=== PATIENT | female | born 1955 | race Caucasian/White ===

== ENCOUNTER 2018-07-06 06:48 | Day surgery (SDC) | payer OTHER ==
[~2018-07-06] VITALS: Ht 154.9 cm; Wt 69.5 kg
[~2018-07-06 06:48] MED LIST: SODIUM CHLORIDE 0.9% 1,000 ML IV ONE
[2018-07-06] MEDS ORDERED: LIDOCAINE 2% 30 ML JELLY TP ONE ×2 (06:49)
[2018-07-06] MEDS ORDERED: ALBUTEROL SULFATE 2.5 MG/0.5 ML NEB SOLUTION NEB ONE ×2 (06:49)
[2018-07-06] MEDS ORDERED: LIDOCAINE 4% 50 ML SOLUTION TP ONE ×2 (06:49)
[2018-07-06] MEDS ORDERED: BENZOCAINE 20% 50 MCG/SPRAY 57 GM TP ONE ×2 (06:49)
[2018-07-06] MEDS ORDERED: SODIUM CHLORIDE 0.9% 1,000 ML IV ONE (07:00)
[2018-07-06] MEDS ORDERED: MIDAZOLAM HCL 2 MG/2 ML VIAL ONE (07:50)
[2018-07-06] MEDS ORDERED: FentaNYL CITRATE-PF 100 MCG/2 ML VIAL ONE (07:50)
[2018-07-06] MEDS ORDERED: MONT10TA21 PO (08:40)
[2018-07-06] MEDS ORDERED: FISH1 PO (08:40)
[2018-07-06] MEDS ORDERED: OMEP20 PO (08:40)
[2018-07-06] MEDS ORDERED: LORA10TA7 PO (08:40)
[2018-07-06] MEDS ORDERED: ALBU8.5H8 IH (08:40)
[2018-07-06] MEDS ORDERED: ATOR40TA28 PO (08:40)
[2018-07-06] MEDS ORDERED: MethylPREDNISolone SOD SUCC 125 MG/2 ML VIAL IVP ONE (09:15)
[2018-07-06] MEDS ORDERED: MethylPREDNISolone SOD SUCC 125 MG/2 ML VIAL ONE (09:28)
[2018-07-06] MEDS ORDERED: OXYGEN THERAPY IH SCH (20:00)
== END 2018-07-06 10:25 | disposition home or self-care (01) ==
LOC: SURGERY 06:48
PROVIDERS: ATTEND Internal Medicine Critical Care Medicine
DX: J38.4 Edema of larynx (principal); B37.0 Candidal stomatitis; J84.89 Other specified interstitial pulmonary diseases; J84.111 Idiopathic interstitial pneumonia, not otherwise specified; I10 Essential (primary) hypertension; J45.998 Other asthma; M19.90 Unspecified osteoarthritis, unspecified site; Z90.49 Acquired absence of other specified parts of digestive tract; Z90.710 Acquired absence of both cervix and uterus; Z87.01 Personal history of pneumonia (recurrent); Z86.11 Personal history of tuberculosis; Z79.51 Long term (current) use of inhaled steroids; Z98.890 Other specified postprocedural states; Z79.899 Other long term (current) drug therapy
CPT/HCPCS: 31623; 31624; 71045; 87015; 87070; 87205; 87206; 87220; 88108; 88305; 88312; J2250; J2930; J3010; J7030

== ENCOUNTER → 2021-05-09 | Day surgery (SDC) | payer OTHER ==
[2021-05-07 11:15] LABS: COVID AG,FIA SOURCE NASOPHARYNGEAL
[~2021-05-09] VITALS: Ht 152.4 cm; Wt 72.3 kg
[~2021-05-09] MED LIST changes: +ALBU8.5H8 IH; +ALBUTEROL SULFATE 2.5 MG/0.5 ML NEB SOLUTION NEB ONE; +ATOR40TA28 PO; +BENZOCAINE 20% 50 MCG/SPRAY 57 GM TP ONE; +FISH1 PO; +FentaNYL CITRATE PF 100 MCG/2 ML VIAL ONE; +LIDOCAINE 2% 30 ML JELLY TP ONE; +LIDOCAINE 4% 50 ML SOLUTION TP ONE; +LORA10TA7 PO; +MIDAZOLAM HCL 2 MG/2 ML VIAL ONE; +MONT-35 PO; +MethylPREDNISolone SOD SUCC 125 MG/2 ML VIAL IVP ONE; +MethylPREDNISolone SOD SUCC 125 MG/2 ML VIAL ONE; +OMEP20 PO; +OXYGEN THERAPY IH SCH; +SODIUM CHLORIDE 0.9% 1,000 ML ONE
== END | disposition home or self-care (01) ==
LOC: SURGERY 06:18
PROVIDERS: ATTEND Internal Medicine Critical Care Medicine
DX: J38.4 Edema of larynx (principal); B37.0 Candidal stomatitis; M19.90 Unspecified osteoarthritis, unspecified site; Z90.710 Acquired absence of both cervix and uterus; Z90.49 Acquired absence of other specified parts of digestive tract
CPT/HCPCS: 31623; 31624; 71045; 87015; 87070; 87077; 87101; 87186; 87206; 87220; 87426; 88108; 88184; 88185; 88312; C9803; J2250; J2930; J3010; J7030; J7613; Z7610

== ENCOUNTER 2022-06-17 06:05 | Day surgery (SDC) | payer OTHER ==
[~2022-06-17] VITALS: Ht 154.9 cm; Wt 69.1 kg
[~2022-06-17 06:05] MED LIST changes: -ALBUTEROL SULFATE 2.5 MG/0.5 ML NEB SOLUTION NEB ONE; -BENZOCAINE 20% 50 MCG/SPRAY 57 GM TP ONE; +CHOL500045 PO; +FAMO40TA7 PO; +FLUT16H NASAL; +FLUT1BLS13 IH; -FentaNYL CITRATE PF 100 MCG/2 ML VIAL ONE; -LIDOCAINE 2% 30 ML JELLY TP ONE; -LIDOCAINE 4% 50 ML SOLUTION TP ONE; -MIDAZOLAM HCL 2 MG/2 ML VIAL ONE; -MethylPREDNISolone SOD SUCC 125 MG/2 ML VIAL IVP ONE; -MethylPREDNISolone SOD SUCC 125 MG/2 ML VIAL ONE; -OMEP20 PO; -OXYGEN THERAPY IH SCH; -SODIUM CHLORIDE 0.9% 1,000 ML ONE
[2022-06-17] MEDS ORDERED: LIDOCAINE 4% 50 ML SOLUTION TP ONE (06:06)
[2022-06-17] MEDS ORDERED: LIDOCAINE 2% 11 ML JELLY TP ONE (06:06)
[2022-06-17] MEDS ORDERED: BENZOCAINE 20% 50 MCG/SPRAY 57 GM TP ONE (06:06)
[2022-06-17 06:39] LABS: COVID AG,FIA SOURCE NASAL SWAB
[2022-06-17] MEDS ORDERED: DICL75TA5 PO (06:59)
[2022-06-17] MEDS ORDERED: DOXY75TA14 PO (06:59)
[2022-06-17] MEDS ORDERED: PRED-729 PO (06:59)
[2022-06-17] MEDS ORDERED: SODIUM CHLORIDE 0.9% 1,000 ML ONE (07:16)
[2022-06-17] MEDS ORDERED: MIDAZOLAM HCL 5 MG/ML VIAL ONE (07:41)
[2022-06-17] MEDS ORDERED: FentaNYL CITRATE PF 100 MCG/2 ML VIAL ONE (07:41)
[2022-06-17] MEDS ORDERED: MethylPREDNISolone SOD SUCC 125 MG/2 ML VIAL ONE (09:23)
[2022-06-17] MEDS ORDERED: MethylPREDNISolone SOD SUCC 125 MG/2 ML VIAL IVP ONE (09:30)
[2022-06-17] MEDS ORDERED: PROMETH/PHENYLEPHRINE/CODEINE 5 ML ORAL.SYG PO ONE (09:30)
[2022-06-17] MEDS ORDERED: ALBUTEROL SULFATE 2.5 MG/0.5 ML NEB SOLUTION NEB ONE ×2 (11:00→11:01)
[2022-06-17] MEDS ORDERED: OXYGEN THERAPY IH SCH (20:00)
== END 2022-06-17 11:30 | disposition home or self-care (01) ==
LOC: SURGERY 06:05
PROVIDERS: ATTEND Internal Medicine Critical Care Medicine
DX: J38.4 Edema of larynx (principal); B37.0 Candidal stomatitis; Z90.710 Acquired absence of both cervix and uterus; Z91.013 Allergy to seafood; Z98.890 Other specified postprocedural states; Z90.49 Acquired absence of other specified parts of digestive tract; Z79.899 Other long term (current) drug therapy; J45.909 Unspecified asthma, uncomplicated
CPT/HCPCS: 31623; 87206; 87101; 87220; 87070; 31624; 71045; 87015; 87426; J3010; J2930; J2370; J2250; Q9967; J7030; C9803; J7613; Z7610